=== PATIENT | male | born 1980 | race Caucasian/White ===

== ENCOUNTER 2017-03-17 17:38 | Inpatient (IN) | payer MEDICAID ==
[~2017-03-17] VITALS: Ht 185.4 cm; Wt 67.1 kg
[2017-03-17] MEDS ORDERED: SODIUM CHLORIDE 0.9% 1,000 ML IV ONE (18:52)
[2017-03-17] MEDS: LORAZEPAM 2MG/ML CPJ IV PRN ×2 (19:10→23:46)
[2017-03-17 19:18] LABS: BASOPHILS % 0.7 % (0.0-2.0); HEMATOCRIT. 41.8 % (42.0-52.0); HEMOGLOBIN. 14.1 g/dL (14.0-18.0); LYMPHOCYTES % 8.3 % (20.0-50.0); MEAN CORPUSCULAR VOLUME 88.8 fL (80.0-94.0); MEAN PLATELET VOLUME 7.9 fl (7.4-10.4); MONOCYTES % 4.9 % (2.0-8.0); NEUTROPHILS % 86.1 % (40.0-76.0); PLATELET 453 x1000/uL (130-400); RED BLOOD CELL COUNT 4.71 mill/uL (4.7-6.1); RED CELL DISTRIBUTION WIDTH 12.8 % (11.6-14.6)
[2017-03-17 19:22] LABS: CHLORIDE 104 mEq/L (98-107)
[2017-03-17 19:26] LABS: CARBON DIOXIDE 25 mEq/L (21-32)
[2017-03-17] MEDS ORDERED: CLONAZEPAM 1MG TABLET PO ONE (19:45)
[2017-03-17] MEDS: QUETIAPINE FUMARATE 25MG TABLET PO SCH (21:14)
[2017-03-18] MEDS ORDERED: SODIUM CHLORIDE 0.9% 1,000 ML IV ONE ×4 (00:45→14:00)
[2017-03-18] MEDS ORDERED: HALOPERIDOL LACTATE 5MG/ML VIAL IM ONE ×5 (00:45→19:30)
[2017-03-18] MEDS ORDERED: DIPHENHYDRAMINE 50MG/ML VIAL IV ONE (03:00)
[2017-03-18] MEDS: LORAZEPAM 2MG/ML CPJ IV PRN ×3 (03:17→19:09)
[2017-03-18] MEDS ORDERED: OLANZAPINE 10 MG/VIAL IM ONE ×2 (03:45→08:15)
[2017-03-18] MEDS: QUETIAPINE FUMARATE 25MG TABLET PO SCH (09:00)
[2017-03-18] MEDS ORDERED: LORAZEPAM 2MG/ML CPJ IV ONE ×5 (09:30→22:30)
[2017-03-18 09:49] LABS: *AMPHETAMINES SCREEN URINE PRESUMTIVE POSITIVE (NEGATIVE); *BARBITURATES SCREEN URINE NEGATIVE (NEGATIVE); *BENZODIAZEPINES SCREEN URINE NEGATIVE (NEGATIVE); *COCAINE SCREEN URINE NEGATIVE (NEGATIVE); CANNABINOID URINE SCREEN PRESUMTIVE POSITIVE (NEGATIVE); METHADONE URINE SCREEN NEGATIVE (NEGATIVE); OPIATES URINE SCREEN PRESUMTIVE POSITIVE (NEGATIVE); PHENCYCLIDINE URINE SCREEN NEGATIVE (NEGATIVE)
[2017-03-18] MEDS ORDERED: LORAZEPAM 2MG/ML CPJ IV STA (10:35)
[2017-03-18] MEDS ORDERED: IPRATROPIUM/ALBUTEROL 0.5-3(2.5)MG/3ML NEB INH PRN (12:15)
[2017-03-18] MEDS ORDERED: CLONIDINE 0.1MG TABLET PO PRN (12:15)
[2017-03-18] MEDS ORDERED: ONDANSETRON HCL 4MG/2ML VIAL IV PRN (12:15)
[2017-03-18] MEDS ORDERED: LORAZEPAM 2MG/ML CPJ IV PRN (12:15)
[2017-03-18] MEDS ORDERED: ACETAMINOPHEN 325MG TABLET PO PRN (12:15)
[2017-03-18] MEDS ORDERED: MAGNESIUM/ALUMINUM HYDROXIDE/SIMETHICONE 30ML UDC PO PRN (12:15)
[2017-03-18 16:39] LABS: AMMONIA 99 uMol/L (<32)
[2017-03-18 16:43] LABS: CREATINE KINASE MB FRACTION 38.2 ng/mL (0.5-3.6); TROPONIN I 0.07 ng/mL (0.00-0.04)
[2017-03-18 16:47] LABS: FOLIC ACID (FOLATE) SERUM 16.9 ng/mL (>5.38)
[2017-03-18 16:53] LABS: T4 FREE 1.27 ng/dL (0.76-1.46)
[2017-03-18] MEDS ORDERED: MIDAZOLAM HCL 50 MG in DEXTROSE 5% WATER 40 ML IV ONE (19:30)
[2017-03-18] MEDS ORDERED: MIDAZOLAM 50 MG in DEXTROSE 5% WATER 50 ML IV PRN (20:15)
[2017-03-18] MEDS ORDERED: MIDAZOLAM HCL 2 MG/2 ML VIAL IV ONE (21:15)
[2017-03-18] MEDS ORDERED: MIDAZOLAM HCL 2 MG/2 ML VIAL ONE (21:21)
[2017-03-18] MEDS ORDERED: SODIUM CHLORIDE 0.9% 1000ML BAG (SEPSIS BOLUS) IV ONE (22:30)
[2017-03-18 23:20] VITALS: BP 98/60
[2017-03-18 23:30] VITALS: BP 110/67
[2017-03-19] VITALS (40 sets, daily range): BP systolic 81–144; BP diastolic 12–98
[2017-03-19] MEDS: LORAZEPAM 2MG/ML CPJ IV PRN ×8 (03:01→22:07)
[2017-03-19 05:38] LABS: BASOPHILS % 0.2 % (0.0-2.0); HEMATOCRIT. 36.3 % (42.0-52.0); LYMPHOCYTES % 7.5 % (20.0-50.0); MEAN CORPUSCULAR VOLUME 90.7 fL (80.0-94.0); MEAN PLATELET VOLUME 8.5 fl (7.4-10.4); NEUTROPHILS % 84.3 % (40.0-76.0); PLATELET 380 x1000/uL (130-400); RED CELL DISTRIBUTION WIDTH 13.5 % (11.6-14.6)
[2017-03-19 05:46] LABS: CARBON DIOXIDE 14 mEq/L (21-32); CHLORIDE 120 mEq/L (98-107); LDL CHOLESTEROL 115 mg/dL (5-100)
[2017-03-19 05:55] LABS: HDL CHOLESTEROL 36 mg/dL (40-59)
[2017-03-19 09:39] LABS: BG DEOXYHEMOGLOBIN 4.5 % (0.0-5.0); BG FRACTION INSPIRED OXYGEN 21; BG HCO3 ACT 16.6 mmol/L (22.0-26.0); BG METHEMOGLOBIN 0.1 % (0.0-1.5); BG OXYGEN SATURATION 95.5 % (92.0-98.5); BG OXYHEMOGLOBIN 95.4 % (94.0-97.0); BG PCO2 24.8 mmHg (35.0-45.0); BG PH 7.444 (7.350-7.450); BG PO2 79.4 mmHg (75.0-100.0); BG SAMPLE SITE RIGHT RADIAL; BG TOTAL HEMOGLOBIN 11.6 g/dL (12.0-18.0); BG VENT MODE ROOM AIR
[2017-03-19] MEDS: DEXT 5%/0.45% NACL 1000ML 1,000 ML IV SCH ×2 (09:39→12:45)
[2017-03-19] MEDS: HALOPERIDOL LACTATE 5MG/ML VIAL IM PRN ×4 (09:39→23:05)
[2017-03-19 11:57] LABS: CARBON DIOXIDE 21 mEq/L (21-32); CHLORIDE 112 mEq/L (98-107)
[2017-03-19 13:14] LABS: HEPATITIS B SURFACE ANTIGEN NEGATIVE
[2017-03-19 13:27] LABS: INR 1.2; PARTIAL THROMBOPLASTIN TIME 28.4 sec (24.0-34.0); PROTHROMBIN TIME 12.1 sec
[2017-03-19 13:40] LABS: HEPATITIS B CORE AB IGM NEGATIVE
[2017-03-19 13:42] LABS: HEPATITIS A AB IGM NEGATIVE (NEGATIVE)
[2017-03-19 14:45] LABS: CREATINE KINASE 47342 IU/L (39-308)
[2017-03-19] MEDS: SODIUM BICARBONATE 100 MEQ in DEXTROSE 5% WATER 1,000 ML IV SCH ×2 (14:47→22:08)
[2017-03-19 18:48] LABS: CLARITY URINE CLEAR (CLEAR); COLOR URINE YELLOW (YELLOW); GLUCOSE URINE NEGATIVE (NEGATIVE); KETONES URINE NEGATIVE (NEGATIVE); LEUKOCYTE ESTERASE URINE NEGATIVE (NEGATIVE); NITRITE URINE NEGATIVE (NEGATIVE); OCCULT BLOOD URINE 3+ (NEGATIVE); PROTEIN URINE NEGATIVE (NEGATIVE); SPECIFIC GRAVITY URINE 1.009 (1.005-1.030); UROBILINOGEN URINE 0.2 E.U./dL (0.2-1.0)
[2017-03-20] VITALS (26 sets, daily range): BP systolic 89–141; BP diastolic 63–98
[2017-03-20 04:44] LABS: BASOPHILS % 0.8 % (0.0-2.0); EOSINOPHILS % 0.4 % (0.0-5.0); HEMOGLOBIN. 10.9 g/dL (14.0-18.0); LYMPHOCYTES % 18.6 % (20.0-50.0); MEAN CORPUSCULAR VOLUME 88.1 fL (80.0-94.0); MEAN PLATELET VOLUME 8.2 fl (7.4-10.4); MONOCYTES % 6.5 % (2.0-8.0); NEUTROPHILS % 73.7 % (40.0-76.0); PLATELET 282 x1000/uL (130-400); RED BLOOD CELL COUNT 3.63 mill/uL (4.7-6.1); RED CELL DISTRIBUTION WIDTH 13.1 % (11.6-14.6)
[2017-03-20 05:02] LABS: CARBON DIOXIDE 28 mEq/L (21-32); CHLORIDE 108 mEq/L (98-107); CREATINE KINASE MB FRACTION 15.7 ng/mL (0.5-3.6); TROPONIN I 0.05 ng/mL (0.00-0.04)
[2017-03-20 06:12] LABS: CREATINE KINASE 24165 IU/L (39-308)
[2017-03-20] MEDS ORDERED: POTASSIUM CHLORIDE 20MEQ TABLET SR PO SCH (06:45)
[2017-03-20] MEDS: DEXT 5%/0.45% NACL 1000ML 1,000 ML IV SCH ×3 (07:37→21:01)
[2017-03-20] MEDS: LORAZEPAM 2MG/ML CPJ IV PRN (18:47)
[2017-03-21] VITALS (11 sets, daily range): BP systolic 110–133; BP diastolic 65–97
[2017-03-21] MEDS: DEXT 5%/0.45% NACL 1000ML 1,000 ML IV SCH ×2 (03:50→09:31)
[2017-03-21 06:49] LABS: BASOPHILS % 1.1 % (0.0-2.0); HEMATOCRIT. 30.2 % (42.0-52.0); HEMOGLOBIN. 10.2 g/dL (14.0-18.0); LYMPHOCYTES % 16.3 % (20.0-50.0); MEAN CORPUSCULAR HEMOGLOBIN 30.1 pg (28.0-32.0); MEAN CORPUSCULAR VOLUME 88.7 fL (80.0-94.0); MEAN PLATELET VOLUME 8.6 fl (7.4-10.4); MONOCYTES % 5.3 % (2.0-8.0); NEUTROPHILS % 76.3 % (40.0-76.0); PLATELET 274 x1000/uL (130-400); RED CELL DISTRIBUTION WIDTH 12.9 % (11.6-14.6)
[2017-03-21 07:08] LABS: CHLORIDE 106 mEq/L (98-107)
[2017-03-21 08:09] LABS: CARBON DIOXIDE 24 mEq/L (21-32); PHOSPHORUS 1.5 mg/dL (2.5-4.9)
[2017-03-21] MEDS ORDERED: POTASSIUM CHLORIDE 20MEQ TABLET SR PO NR ×2 (08:37→13:00)
[2017-03-21 08:40] LABS: CREATINE KINASE 9989 IU/L (39-308)
[2017-03-21] MEDS: LORAZEPAM 2MG/ML CPJ IV PRN (09:30)
[2017-03-21] MEDS ORDERED: SODIUM CHLORIDE 0.9% 1,000 ML IV SCH (11:00)
[2017-03-21] MEDS ORDERED: SODIUM PHOS,M-BASIC-D-BASIC 15 MM in DEXT 5% WATER 245 ML IV NR (12:30)
== END 2017-03-21 12:30 | disposition left against medical advice (07) | DRG 816 ==
LOC: ER 17:51 → MICUSO 03-18 11:44 → 5EST 03-20 14:15
PROVIDERS: ADMIT Internal Medicine; ATTEND Internal Medicine
DX: T40.1X1A Poisoning by heroin, accidental (unintentional), initial encounter (principal); J69.0 Pneumonitis due to inhalation of food and vomit; G92 Toxic encephalopathy; E87.0 Hyperosmolality and hypernatremia; T43.621A Poisoning by amphetamines, accidental (unintentional), initial encounter; E87.2 Acidosis; M62.82 Rhabdomyolysis; E87.6 Hypokalemia; F15.10 Other stimulant abuse, uncomplicated; F17.210 Nicotine dependence, cigarettes, uncomplicated; Z96.659 Presence of unspecified artificial knee joint; F12.10 Cannabis abuse, uncomplicated; F11.10 Opioid abuse, uncomplicated; Z53.21 Procedure and treatment not carried out due to patient leaving prior to being seen by health care provider; Y92.89 Other specified places as the place of occurrence of the external cause
CPT/HCPCS: 36415; 36600; 70450; 71010; 80048; 80053; 80061; 80305; 81001; 82140; 82375; 82550; 82553; 82607; 82746; 82805; 83036; 83605; 83735; 84100; 84439; 84443; 84481; 84484; 85025; 85610; 85730; 86705; 86709; 86803; 87040; 87086; 87340; 93005; 93306; 93970; 96361; 96372; 96374; 96375; 96376; 97161; 99285; 99406; G0482; J1200; J1630; J2060; J2250; J3490; J7030; J7060; J7070

== ENCOUNTER 2017-04-05 00:47 | Emergency (ER) | payer MEDICAID ==
[~2017-04-05] VITALS: Ht 170.2 cm; Wt 82.0 kg
[2017-04-05] MEDS ORDERED: KETOROLAC 30MG/ML VIAL IM ONE (02:00)
[2017-04-05 04:41] VITALS: BP 124/72
== END 2017-04-05 04:48 | disposition home or self-care (01) ==
LOC: ER 00:47
DX: S90.31XA Contusion of right foot, initial encounter (principal); S29.012A Strain of muscle and tendon of back wall of thorax, initial encounter; F41.9 Anxiety disorder, unspecified; F32.9 Major depressive disorder, single episode, unspecified; W13.8XXA Fall from, out of or through other building or structure, initial encounter; Y93.89 Activity, other specified; Y92.89 Other specified places as the place of occurrence of the external cause
CPT/HCPCS: 72070; 73630; 73650; 99284; J1885